=== PATIENT | female | born 1995 | race African-American/Black ===

== ENCOUNTER 2022-09-24 12:01 | Emergency (ER) | payer BC ==
[~2022-09-24] VITALS: Ht 154.9 cm; Wt 89.8 kg
[2022-09-24] MEDS ORDERED: IBUP-1953 PO (12:16)
--- NOTE | 2022-09-24 12:44 | NUR ---
pt seen and evaluated by dr [email or web address].
[2022-09-24 12:45] VITALS: BP 129/73
== END 2022-09-24 12:45 | disposition home or self-care (01) ==
LOC: ER 12:01
DX: T81.31XA Disruption of external operation (surgical) wound, not elsewhere classified, initial encounter (principal)
CPT/HCPCS: A4663